=== PATIENT | female | born 1980 | race Caucasian/White ===

== ENCOUNTER 2017-02-27 12:55 | Emergency (ER) | payer MEDICAID, OTHER ==
[2017-02-27 13:00] VITALS: TEMP 97.9
[2017-02-27] MEDS ORDERED: Naproxen 550 mg Tab PO STA (13:13)
--- NOTE | 2017-02-27 13:16 | C.PDOC ---
History Of Present Illness 36 yo female, presents with left knee pain s/p fall yesteday. pt states she tripped. no other injury or complaint Time Seen by Provider: 02/27/17 13:11 Chief Complaint (Nursing): Lower Extremity Problem/Injury Past Medical History Reviewed: Historical Data, Nursing Documentation, Vital Signs Vital Signs: Last Vital Signs Temp 97.9 F 02/27/17 12:59 Pulse 67 02/27/17 13:55 Resp 18 02/27/17 13:55 BP 115/73 02/27/17 13:55 Pulse Ox 100 02/27/17 14:37 Surgical History: (x 3) Family History: States: Unknown Family Hx - Social History Hx Alcohol Use: No Hx Substance Use: No - Immunization History Hx Tetanus Toxoid Vaccination: Yes Hx Influenza Vaccination: Yes Hx Pneumococcal Vaccination: No Review Of Systems Musculoskeletal: Positive for: Other ((+)left knee pain) Physical Exam - Physical Exam Appears: Well, No Acute Distress Skin: Normal Color, Warm, Dry Eye(s): bilateral: Normal Inspection, PERRL, EOMI Nose: Normal Throat: Normal Neck: Normal Cardiovascular: Rhythm Regular Respiratory: Normal Breath Sounds Gastrointestinal/Abdominal: Normal Exam Back: Normal Inspection Extremity: Normal ROM, Tenderness ((+)left knee ttp, mild swelling), No Deformity, Swelling (mild) ED Course And Treatment O2 Sat by Pulse Oximetry: 100 Medical Decision Making Medical Decision Making: xr shows ? subluxation of patella. no fx. pt offered ct scan. declines ct and crutches, state she wishes to f/u with ortho at home. clinically patella not dislocated as pt able to flex/extend knee in nad. given immoblizer Disposition - Disposition Referrals: [facility] [Outside] [facility] [Outside] [facility] [Outside] Disposition: HOME/ ROUTINE Disposition Time: 01:00 Condition: STABLE Additional Instructions: please follow up with specialist. return to er with worsening symptoms or concerns. Prescriptions: Naproxen [Naprosyn] 500 mg PO BID PRN #14 tab PRN Reason: Pain, Mild (1-3) Instructions: Knee Sprain (ED), Knee Immobilizer (ED) Forms: [employer] (Lithuanian) - Clinical Impression Clinical Impression: Knee injury
[2017-02-27] MEDS ORDERED: Naproxen 550 mg Tab PO ONE (13:23)
[2017-02-27 13:56] VITALS: BP 115/73; PULSE 67; RESP 18
--- NOTE | 2017-02-27 14:20 | RAD ---
PROCEDURE: Left Knee Radiographs. HISTORY: COMPARISON: None available. FINDINGS: BONES: No acute displaced fracture. JOINTS: Deviation/subluxation of the patella on sunrise view. JOINT EFFUSION: Small to moderate suprapatellar joint effusion. OTHER FINDINGS: Marked soft tissue swelling. IMPRESSION: Marked soft tissue swelling. Small to moderate suprapatellar joint effusion. Deviation/subluxation of the patella on sunrise view. Correlate clinically. Cross-sectional imaging may be considered for further evaluation if indicated.
[2017-02-27 14:37] VITALS: O2SAT 100
== END 2017-02-27 13:56 | disposition home or self-care (01) ==
LOC: C.ER 12:55
DX: S89.92XA Unspecified injury of left lower leg, initial encounter (principal); W01.0XXA Fall on same level from slipping, tripping and stumbling without subsequent striking against object, initial encounter; Y92.9 Unspecified place or not applicable